=== PATIENT | female | born 1955 | race Caucasian/White ===

== ENCOUNTER 2019-08-12 11:29 | Inpatient (IN) | payer MEDICARE, OTHER ==
[2019-08-04 15:36] LABS: BASOPHILS % (AUTO) 0.6 % (0-1); EOSINOPHILS # (AUTO) 0.3 X10'3 (0-0.9); EOSINOPHILS % (AUTO) 3.1 % (0-6); LYMPHOCYTES # (AUTO) 2.5 X10'3 (1.1-4.8); MEAN CORPUSCULAR HEMOGLOBIN 32.9 PG (27.0-31.0); MEAN CORPUSCULAR HGB CONC 35.6 g/dL (33.0-36.5); MEAN CORPUSCULAR VOLUME 92.5 FL (78-98); MEAN PLATELET VOLUME 7.3 FL (7.4-10.4); MONOCYTES # (AUTO) 0.7 X10'3 (0-0.9); MONOCYTES % (AUTO) 7.8 % (2-12); NEUTROPHILS % (AUTO) 59.5 % (42-75); PRE OP HEMOGLOBIN 12.5 g/dL (12.0-16.0); PRE OP PLATELET COUNT 352 X10'3 (140-440); RED BLOOD COUNT 3.79 X10'6 (4.20-5.60); RED CELL DISTRIBUTION WIDTH 12.5 % (11.5-14.5)
[2019-08-04 15:44] LABS: PRE OP PROTIME 10.2 SECONDS (9.0-12.0)
[2019-08-04 15:48] LABS: ALBUMIN/GLOBULIN RATIO 1.3 (1.1-1.5); ALKALINE PHOSPHATASE 68 IU/L (46-116); BLOOD UREA NITROGEN 10 MG/DL (7-18); BUN/CREATININE RATIO 11.2 (6.6-38.0); CALCIUM 8.9 MG/DL (8.5-10.1); CHLORIDE 95 MMOL/L (99-107); CREATININE 0.89 MG/DL (0.40-0.90); PRE OP ALT 23 U/L (30-65); PRE OP ANION GAP 7 (8-16); PRE OP AST 19 U/L (10-37); PRE OP BILIRUB, TOTAL 0.3 MG/DL (0.0-1.0); PRE OP GLUCOSE 104 MG/DL (70-104); PRE OP POTASSIUM 3.9 MMOL/L (3.4-5.1); PRE OP SODIUM 132 MMOL/L (135-145); TOTAL CARBON DIOXIDE 29.7 MMOL/L (24-32); TOTAL PROTEIN 7.1 G/DL (6.4-8.2); eGFR 64 ML/MIN
[2019-08-12] VITALS (17 sets, daily range): BP systolic 80–119; BP diastolic 43–76
[~2019-08-12] VITALS: Ht 165.1 cm; Wt 96.2 kg
[~2019-08-12 11:29] MED LIST: Cefazolin 2GM/100ML NS IVPB 100 ML IV ONE; DOCUMENT DATE & TIME OF BETA-BLOCKER PO ONE; FLUO-100 PO; GABA-532 PO; HYDR25TA4 PO; PROM25TA14 PO; PROP20TA6 PO; RIZA10TA28 PO; TIZA4TAB5 PO; famotidine 20mg tablet PO ONE; vancomycin inj 1,500 MG in normal saline 300ml IV soln IV ONE
[2019-08-12] MEDS: ringers solution, lacted 1,000 ML IV SCH ×2 (11:59→12:01)
[2019-08-12] MEDS ORDERED: ceFAZolin 1000mg inj ONE ×2 (12:36→12:46)
[2019-08-12] MEDS ORDERED: LIDOcaine 1% (10mg/ml) 2ml vial ONE (13:00)
[2019-08-12] MEDS ORDERED: BUPIVAcaine/dex-water/PF 7.5 mg/ml 2ml ampul ONE (13:00)
[2019-08-12] MEDS ORDERED: propofol 10mg/ml 20ml vial IV ONE (13:00)
[2019-08-12] MEDS ORDERED: tetracaine 1% (10mg/ml) pres. free inj. ONE (13:05)
[2019-08-12] MEDS ORDERED: morphine /PF 1mg/ml 10ml inj. ONE (13:20)
[2019-08-12] MEDS ORDERED: fentaNYL/PF 50MCG/1 ML 2ML syringe ONE (13:20)
[2019-08-12] MEDS ORDERED: MIDAZolam 1mg/ml 10ml vial ONE (13:20)
[2019-08-12] MEDS ORDERED: TRANEXAMIC ACID 1 GM IN NACL,ISO-OS 100 ML IV ONE (13:40)
[2019-08-12] MEDS ORDERED: diphenhydrAMINE 50 mg/ml inj ONE (13:52)
[2019-08-12] MEDS ORDERED: ringers solution, lacted 1,000 ML IV SCH (14:12)
[2019-08-12] MEDS ORDERED: phenylephrine 10mg/ml inj. ONE (14:13)
[2019-08-12] MEDS ORDERED: morphine 4 MG/ML inj SYRINge IV PRN ×2 (14:15)
[2019-08-12] MEDS ORDERED: hydrALAZINE 20mg/ml inj. IV PRN (14:15)
[2019-08-12] MEDS ORDERED: fentaNYL/PF 50MCG/1 ML 2ML syringe IV PRN ×2 (14:15)
[2019-08-12] MEDS ORDERED: ondansetron/PF 4mg/2ml inj IV PRN ×3 (14:15→16:20)
[2019-08-12] MEDS ORDERED: diphenhydrAMINE 50 mg/ml inj IV PRN (14:15)
[2019-08-12] MEDS ORDERED: labetalol 20mg/4ml (5mg/ml) syringe IV PRN (14:15)
[2019-08-12] MEDS ORDERED: ROPIVAcaine 0.5% (5mg/ml) 30ml vial ONE (14:44)
[2019-08-12] MEDS ORDERED: dexamethasone sod phosphate 4mg/ml inj. ONE (14:44)
[2019-08-12] MEDS ORDERED: proMETHazine 25mg tablet PO PRN (16:15)
[2019-08-12] MEDS ORDERED: HYDROcodone/acetaminophen 10/325mg tab PO PRN (16:20)
[2019-08-12] MEDS ORDERED: diphenhydrAMINE 25mg capsule PO PRN (16:20)
[2019-08-12] MEDS ORDERED: magnesium hydroxide 30ml (MOM) UD suspension PO PRN (16:20)
[2019-08-12] MEDS ORDERED: SUMAtriptan 25 MG tablet PO PRN (16:20)
[2019-08-12] MEDS ORDERED: bisacodyl 10mg suppository rectal RC PRN (16:20)
[2019-08-12] MEDS ORDERED: acetaminophen 325mg tablet PO PRN (16:20)
[2019-08-12] MEDS ORDERED: HYDROmorphone 1 mg/ml syringe IV PRN (16:20)
--- NOTE | 2019-08-12 16:26 | NUR ---
Received from OR via ORTHO BED WITH [facility] , accompanied by Anesthesiologist ANGELIKA and report given by Anesthesiolgist. PATIENT SENSATION LEVEL AT L1 CURRENTLY FROM SPINAL ANESTHESIA. PATIENT WITH 18G PIV IN RIGHT UE RUNNING LR AT 100. DENIES PAIN. BOLDEN CATHETER PRESENT WITH CLEAR YELLOW URINE PRESENT. RIGHT KNEE WRAP, COLD PACK, MARBELLA ALL IN PLACE AND DRESSING IS CDI. Addendum: 08/12/19 at 1652 by Iggy Corrales RN, RN Amended: Links added.
[2019-08-12] MEDS: ROPIVAcaine 0.2%/PF PUMP/bolus 550 ML INTERSCALE SCH (16:58)
--- NOTE | 2019-08-12 17:14 | NUR ---
Patient in room PAS IN 901. I have received report from Tia BUCIO and had the opportunity to ask questions and assume patient care.
[2019-08-12] MEDS ORDERED: aspirin 325mg tablet PO SCH (17:30)
--- NOTE | 2019-08-12 17:36 | NUR ---
ALL CRITERIA FOR TRANSFER TO THE FLOOR HAS BEEN ACHIEVED. VSS. BED LOW, CALL LIGHT AND VS. SET IN PLACE. RN PRESENT TO ACCEPT CARE. PATIENT RESTING COMFORTABLY IN BED. BELONGINGS SENT WITH PATIENT. DRESSINGS CDI. BP WNL, DRESSING CDI. BOLDEN STILL WITH CLEAR YELLOW URINE PRESENT. FORTUNATO IRBY PRESENT TO ACCEPT CARE Addendum: 08/12/19 at 1758 by Iggy Corrales RN, RN Amended: Links added.
--- NOTE | 2019-08-12 17:50 | NUR ---
on the floor. started post op vitals. Problems reprioritized. Patient report given, questions answered & plan of care reviewed with Pierre BUCIO.
--- NOTE | 2019-08-12 19:00 | NUR ---
Patient in room ORTHO 4014. I have received report from Redd BUCIO and had the opportunity to ask questions and assume patient care.
[2019-08-12] MEDS ORDERED: tranexamic acid inj. 1,000 MG in normal saline 100ml IV soln 100 ML IV ONE (19:30)
[2019-08-12] MEDS ORDERED: vancomycin/NS 1 GM ADD-VANTAGE 250 ML IV SCH (20:00)
[2019-08-12] MEDS: diphenhydrAMINE 25mg capsule PO PRN (20:39)
[2019-08-12] MEDS: ROPIVAcaine 0.2% (10 MG/5 ML) BOLUS INJECTION INTERSCALE PRN (21:29)
[2019-08-12] MEDS: potassium Cl 20mEq in NS 1,000 ML IV SCH (21:35)
[2019-08-12] MEDS: ketorolac tromethamine 15mg/ml inj. IV SCH (21:37)
[2019-08-12] MEDS: sennosides 8.6mg tablet PO SCH (21:39)
[2019-08-12] MEDS: gabapentin 300mg capsule PO SCH (21:40)
[2019-08-13] VITALS (11 sets, daily range): BP systolic 64–115; BP diastolic 21–76
--- NOTE | 2019-08-13 01:30 | NUR ---
Pt sbp was 75, with a map of 51, Pt is asymptomatic. 250ml Fluid bolus was given, pt responded to 95/ 45 blood pressure with a map of 63.
[2019-08-13] MEDS: ceFAZolin 1GM/D5W- ADD-VANTAGE 50 ML IV SCH ×2 (03:25→08:42)
[2019-08-13] MEDS: ketorolac tromethamine 15mg/ml inj. IV SCH ×3 (03:27→13:46)
--- NOTE | 2019-08-13 06:20 | NUR ---
Patient in room ORTHO 4014. I have received report from TJ BUCIO and had the opportunity to ask questions and assume patient care.
[2019-08-13] MEDS: potassium Cl 20mEq in NS 1,000 ML IV SCH ×2 (06:54→12:12)
[2019-08-13 06:57] LABS: BASOPHILS % (AUTO) 0.2 % (0-1); EOSINOPHILS % (AUTO) 0.6 % (0-6); HEMATOCRIT 23.4 % (35.0-45.0); HEMOGLOBIN 8.4 g/dl (12.0-16.0); LYMPHOCYTES # (AUTO) 1.3 X10'3 (1.1-4.8); MEAN CORPUSCULAR VOLUME 92.5 FL (78-98); MONOCYTES # (AUTO) 0.8 X10'3 (0-0.9); MONOCYTES % (AUTO) 11.7 % (2-12); NEUTROPHILS # (AUTO) 4.6 X10'3 (1.8-7.7); NEUTROPHILS % (AUTO) 68.5 % (42-75); PLATELET COUNT 249 X10'3 (140-440); RED BLOOD COUNT 2.53 X10'6 (4.20-5.60); RED CELL DISTRIBUTION WIDTH 12.5 % (11.5-14.5); WHITE BLOOD COUNT 6.8 X10'3 (4.5-11.0)
[2019-08-13 07:03] LABS: ALANINE AMINOTRANSFERASE 29 U/L (12-78); ALBUMIN 3.1 G/DL (3.4-5.0); ALBUMIN/GLOBULIN RATIO 1.3 (1.1-1.5); ALKALINE PHOSPHATASE 45 IU/L (46-116); ANION GAP 10 (8-16); ASPARTATE AMINO TRANSFERASE 26 U/L (10-37); BILIRUBIN,TOTAL 0.3 MG/DL (0.1-1.0); BLOOD UREA NITROGEN 11 MG/DL (7-18); BUN/CREATININE RATIO 11.5 (6.6-38.0); CALCIUM 8.3 MG/DL (8.5-10.1); CHLORIDE 97 MMOL/L (99-107); CREATININE 0.96 MG/DL (0.40-0.90); GLUCOSE 123 MG/DL (70-104); POTASSIUM 3.4 MMOL/L (3.5-5.1); SODIUM 131 MMOL/L (135-145); TOTAL CARBON DIOXIDE 24.5 MMOL/L (24-32); TOTAL PROTEIN 5.5 G/DL (6.4-8.2); eGFR 58 ML/MIN
[2019-08-13 07:19] LABS: MEAN CORPUSCULAR HEMOGLOBIN 32.9 PG (27.0-31.0); MEAN CORPUSCULAR HGB CONC 35.1 g/dL (33.0-36.5)
[2019-08-13] MEDS: aspirin 81mg tablet.DR PO SCH ×2 (08:14→17:39)
[2019-08-13] MEDS: FLUoxetine 20mg capsule PO SCH (08:15)
[2019-08-13] MEDS: HYDROchlorothiazide 25mg tablet PO SCH (08:15)
[2019-08-13] MEDS: gabapentin 300mg capsule PO SCH ×2 (08:15→20:07)
[2019-08-13] MEDS: propranolol 10mg tablet PO SCH (08:15)
--- NOTE | 2019-08-13 13:48 | NUR ---
Joint Replacement Consult: Pt admit s/p R TKA PO 75-100% avg meals meeting healing needs post-op. No BM yet post-op receiving senna. Also on hydrochlorothiazide w/ K replacement running. No nutrition concerns at this time. Will continue to monitor. Addendum: 08/13/19 at [address] Amended: Links added.
[2019-08-13] MEDS: ROPIVAcaine 0.2%/PF PUMP/bolus 550 ML INTERSCALE SCH (17:24)
--- NOTE | 2019-08-13 17:30 | NUR ---
PATIENT GAVE HERSELF A BOLUS FROM THE ON-Q.
--- NOTE | 2019-08-13 17:52 | NUR ---
Student documentation: I have reviewed and agree with all interventions, assessments performed and documented by KALPESH FRIED. Student Medication Administration: For this medication-pass time frame, all medication were reviewed, dispensed, administered and documented per hospital policy by KALPESH FRIED.
--- NOTE | 2019-08-13 18:05 | NUR ---
Problems reprioritized. Patient report given, questions answered & plan of care reviewed with NOEL BUCIO.
--- NOTE | 2019-08-13 18:27 | NUR ---
Patient in room ORTHO 4014. I have received report from Tarah BUCIO and had the opportunity to ask questions and assume patient care.
[2019-08-13] MEDS: diphenhydrAMINE 25mg capsule PO PRN (20:07)
[2019-08-13] MEDS: sennosides 8.6mg tablet PO SCH (20:07)
[2019-08-13] MEDS ORDERED: normal saline 250ml IV soln 250 ML IV ONE ×2 (22:26→23:15)
--- NOTE | 2019-08-13 22:26 | NUR ---
Low BP at 2200 vitals. 250ml bolus given. Asymptomatic. BP retaken and still low. Called MD's answering service. Awaiting phone call from accreditation coordinator .
--- NOTE | 2019-08-13 22:58 | NUR ---
Called sap business intelligence consultant service again. BP still low.
--- NOTE | 2019-08-13 23:15 | NUR ---
Still no call from answering service. Patient placed in Trendelenburg. Second 250ml bolus given. Addendum: 08/14/19 at 0545 by Lupe Davey RN Never received call from acetone button paster MD. Patient's BP stabilized after boluses.
[2019-08-14] VITALS (15 sets, daily range): BP systolic 91–143; BP diastolic 42–70
[2019-08-14] MEDS: potassium Cl 20mEq in NS 1,000 ML IV SCH ×2 (00:24→13:29)
[2019-08-14 05:21] LABS: BASOPHILS % (AUTO) 0.3 % (0-1); EOSINOPHILS # (AUTO) 0.1 X10'3 (0-0.9); EOSINOPHILS % (AUTO) 1.9 % (0-6); HEMOGLOBIN 7.1 g/dl (12.0-16.0); LYMPHOCYTES # (AUTO) 1.2 X10'3 (1.1-4.8); LYMPHOCYTES % (AUTO) 21.4 % (21-51); MEAN CORPUSCULAR HEMOGLOBIN 33.6 PG (27.0-31.0); MEAN CORPUSCULAR HGB CONC 35.8 g/dL (33.0-36.5); MEAN CORPUSCULAR VOLUME 93.8 FL (78-98); MEAN PLATELET VOLUME 6.7 FL (7.4-10.4); MONOCYTES # (AUTO) 0.8 X10'3 (0-0.9); MONOCYTES % (AUTO) 14.4 % (2-12); NEUTROPHILS # (AUTO) 3.5 X10'3 (1.8-7.7); PLATELET COUNT 164 X10'3 (140-440); RED BLOOD COUNT 2.11 X10'6 (4.20-5.60); RED CELL DISTRIBUTION WIDTH 12.7 % (11.5-14.5); WHITE BLOOD COUNT 5.6 X10'3 (4.5-11.0)
[2019-08-14 05:26] LABS: HEMATOCRIT 19.8 % (35.0-45.0)
[2019-08-14 05:34] LABS: ALANINE AMINOTRANSFERASE 16 U/L (12-78); ALBUMIN 2.7 G/DL (3.4-5.0); ALBUMIN/GLOBULIN RATIO 1.1 (1.1-1.5); ALKALINE PHOSPHATASE 42 IU/L (46-116); ANION GAP 6 (8-16); ASPARTATE AMINO TRANSFERASE 17 U/L (10-37); BILIRUBIN,TOTAL 0.4 MG/DL (0.1-1.0); BLOOD UREA NITROGEN 13 MG/DL (7-18); BUN/CREATININE RATIO 14.6 (6.6-38.0); CHLORIDE 99 MMOL/L (99-107); CREATININE 0.89 MG/DL (0.40-0.90); GLUCOSE 113 MG/DL (70-104); POTASSIUM 3.7 MMOL/L (3.5-5.1); SODIUM 129 MMOL/L (135-145); TOTAL CARBON DIOXIDE 24.1 MMOL/L (24-32); TOTAL PROTEIN 5.2 G/DL (6.4-8.2); eGFR 64 ML/MIN
--- NOTE | 2019-08-14 05:36 | NUR ---
Critical Hematocrit 19.8. Called answering service with results. Awaiting call or contact centre manager MD to call.
--- NOTE | 2019-08-14 05:57 | NUR ---
Called answering service again. Awaiting call.
--- NOTE | 2019-08-14 06:37 | NUR ---
Patient in room ORTHO 4014. I have received report from Lupe BUCIO and had the opportunity to ask questions and assume patient care.
--- NOTE | 2019-08-14 06:40 | NUR ---
Problems reprioritized. Patient report given, questions answered & plan of care reviewed with Redd BUCIO.
[2019-08-14] MEDS: aspirin 81mg tablet.DR PO SCH ×2 (08:45→17:55)
[2019-08-14] MEDS: FLUoxetine 20mg capsule PO SCH (08:45)
[2019-08-14] MEDS: gabapentin 300mg capsule PO SCH ×2 (08:45→20:03)
[2019-08-14] MEDS: HYDROcodone/acetaminophen 10/325mg tab PO PRN ×3 (11:37→21:01)
[2019-08-14 14:52] LABS: MEAN CORPUSCULAR HEMOGLOBIN 32.4 PG (27.0-31.0); MEAN CORPUSCULAR HGB CONC 35.7 g/dL (33.0-36.5); MEAN CORPUSCULAR VOLUME 90.8 FL (78-98); MEAN PLATELET VOLUME 7.1 FL (7.4-10.4); PLATELET COUNT 197 X10'3 (140-440); RED BLOOD COUNT 3.08 X10'6 (4.20-5.60); RED CELL DISTRIBUTION WIDTH 14.1 % (11.5-14.5); WHITE BLOOD COUNT 8.7 X10'3 (4.5-11.0)
--- NOTE | 2019-08-14 16:10 | NUR ---
Called Dr. Frye office and left a message with braid cutter that patient will be staying another night to monitor BP and work with physical therapy in the morning.
--- NOTE | 2019-08-14 18:24 | NUR ---
Problems reprioritized. Patient report given, questions answered & plan of care reviewed with Junior BUCIO.
--- NOTE | 2019-08-14 18:45 | NUR ---
Problems reprioritized. Patient report given, questions answered & plan of care reviewed with FORTUNATO Rainey.
[2019-08-14] MEDS: sennosides 8.6mg tablet PO SCH (20:03)
[2019-08-15] MEDS: ROPIVAcaine 0.2%/PF PUMP/bolus 550 ML INTERSCALE SCH (03:21)
[2019-08-15] MEDS: ROPIVAcaine 0.2% (10 MG/5 ML) BOLUS INJECTION INTERSCALE PRN (03:27)
[2019-08-15 06:00] VITALS: BP 82/50
--- NOTE | 2019-08-15 06:20 | NUR ---
received report from stevan hamilton
--- NOTE | 2019-08-15 06:26 | NUR ---
Problems reprioritized. Patient report given, questions answered & plan of care reviewed with FORTUNATO Plaza.
[2019-08-15] MEDS: HYDROcodone/acetaminophen 10/325mg tab PO PRN (06:52)
[2019-08-15] MEDS: aspirin 81mg tablet.DR PO SCH (07:25)
[2019-08-15] MEDS: gabapentin 300mg capsule PO SCH (07:25)
[2019-08-15] MEDS: FLUoxetine 20mg capsule PO SCH (07:27)
[2019-08-15 07:34] LABS: BASOPHILS % (AUTO) 0.3 % (0-1); EOSINOPHILS # (AUTO) 0.3 X10'3 (0-0.9); EOSINOPHILS % (AUTO) 3.6 % (0-6); HEMATOCRIT 26.2 % (35.0-45.0); HEMOGLOBIN 9.3 g/dl (12.0-16.0); LYMPHOCYTES # (AUTO) 1.7 X10'3 (1.1-4.8); LYMPHOCYTES % (AUTO) 24.1 % (21-51); MEAN CORPUSCULAR HEMOGLOBIN 32.6 PG (27.0-31.0); MEAN CORPUSCULAR HGB CONC 35.6 g/dL (33.0-36.5); MEAN CORPUSCULAR VOLUME 91.7 FL (78-98); MEAN PLATELET VOLUME 7.2 FL (7.4-10.4); MONOCYTES % (AUTO) 14.5 % (2-12); NEUTROPHILS % (AUTO) 57.5 % (42-75); PLATELET COUNT 183 X10'3 (140-440); RED BLOOD COUNT 2.86 X10'6 (4.20-5.60); RED CELL DISTRIBUTION WIDTH 14.2 % (11.5-14.5)
[2019-08-15 07:52] LABS: ALANINE AMINOTRANSFERASE 17 U/L (12-78); ALBUMIN 2.5 G/DL (3.4-5.0); ALBUMIN/GLOBULIN RATIO 0.8 (1.1-1.5); ALKALINE PHOSPHATASE 53 IU/L (46-116); ANION GAP 9 (8-16); ASPARTATE AMINO TRANSFERASE 13 U/L (10-37); BILIRUBIN,TOTAL 0.4 MG/DL (0.1-1.0); BLOOD UREA NITROGEN 11 MG/DL (7-18); BUN/CREATININE RATIO 15.3 (6.6-38.0); CALCIUM 8.7 MG/DL (8.5-10.1); CHLORIDE 101 MMOL/L (99-107); CREATININE 0.72 MG/DL (0.40-0.90); GLUCOSE 116 MG/DL (70-104); POTASSIUM 3.7 MMOL/L (3.5-5.1); SODIUM 134 MMOL/L (135-145); TOTAL CARBON DIOXIDE 24.5 MMOL/L (24-32); TOTAL PROTEIN 5.6 G/DL (6.4-8.2); eGFR 81 ML/MIN
[2019-08-15] MEDS: HYDROchlorothiazide 25mg tablet PO SCH (08:00)
[2019-08-15] MEDS: propranolol 10mg tablet PO SCH (09:35)
[2019-08-15 09:36] VITALS: BP 104/55
--- NOTE | 2019-08-15 10:19 | NUR ---
PT D/C WITH INSTRUCTIONS, UNDERSTANDING OF INSTRUCTIONS, AND W/ALL BELONGINGS IN WHEELCHAIR TO PRIVATE VEHICLE ACCOMPANIED BY TO GO HOME AND F/U W/SURGEON
== END 2019-08-15 10:15 | disposition home or self-care (01) | DRG 470 ==
LOC: PAS IN 11:29 → EDSTATUS 13:30 → ORTHO 4S 17:45
PROVIDERS: ADMIT Orthopaedic Surgery; ATTEND Orthopaedic Surgery
PROC: 3E0T3BZ Introduction of Anesthetic Agent into Peripheral Nerves and Plexi, Percutaneous Approach (ICD-10-PCS; 2019-08-12)
PROC: 0SRC069 Replacement of Right Knee Joint with Oxidized Zirconium on Polyethylene Synthetic Substitute, Cemented, Open Approach (ICD-10-PCS; principal; 2019-08-12 13:07)
PROC: 30233N1 Transfusion of Nonautologous Red Blood Cells into Peripheral Vein, Percutaneous Approach (ICD-10-PCS; 2019-08-14)
DX: M17.11 Unilateral primary osteoarthritis, right knee (principal); D62 Acute posthemorrhagic anemia; I10 Essential (primary) hypertension; G89.29 Other chronic pain; F32.9 Major depressive disorder, single episode, unspecified; G43.909 Migraine, unspecified, not intractable, without status migrainosus; Z85.820 Personal history of malignant melanoma of skin; Z98.84 Bariatric surgery status; Z79.899 Other long term (current) drug therapy
CPT/HCPCS: 36415; 80053; 82948; 85025; 85027; 85610; 85730; 86885; 86900; 86901; 86920; 87081; 97110; 97116; 97162; 97530; A4215; A6455; A7000; C1713; C1758; C1776; G0378; J0690; J1100; J1200; J1885; J2001; J2250; J2270; J2370; J2704; J2795; J3010; J3370; J3480; J3490; J7050; J7120; P9016; Q0163; Q0169

== ENCOUNTER 2020-07-18 05:54 | Day surgery (SDC) | payer MEDICARE ==
[2020-07-13 11:58] LABS: BASOPHILS % (AUTO) 0.5 % (0-1); EOSINOPHILS # (AUTO) 0.3 X10'3 (0-0.9); EOSINOPHILS % (AUTO) 4.3 % (0-6); LYMPHOCYTES # (AUTO) 1.6 X10'3 (1.1-4.8); LYMPHOCYTES % (AUTO) 26.9 % (21-51); MEAN CORPUSCULAR HEMOGLOBIN 32.6 PG (27.0-31.0); MEAN CORPUSCULAR HGB CONC 34.5 g/dL (33.0-36.5); MEAN CORPUSCULAR VOLUME 94.4 FL (78-98); MEAN PLATELET VOLUME 6.8 FL (7.4-10.4); MONOCYTES # (AUTO) 0.6 X10'3 (0-0.9); MONOCYTES % (AUTO) 10.8 % (2-12); NEUTROPHILS # (AUTO) 3.4 X10'3 (1.8-7.7); NEUTROPHILS % (AUTO) 57.5 % (42-75); PRE OP HEMOGLOBIN 13.1 g/dL (12.0-16.0); PRE OP PLATELET COUNT 324 X10'3 (140-440); RED BLOOD COUNT 4.02 X10'6 (4.20-5.60); RED CELL DISTRIBUTION WIDTH 12.5 % (11.5-14.5)
[2020-07-13 12:06] LABS: PRE OP PROTIME 10.6 SECONDS (9.0-12.0)
[2020-07-13 12:07] LABS: ALBUMIN 4.1 G/DL (3.4-5.0); ALBUMIN/GLOBULIN RATIO 1.2 (1.1-1.5); ALKALINE PHOSPHATASE 76 IU/L (46-116); BLOOD UREA NITROGEN 18 MG/DL (7-18); BUN/CREATININE RATIO 21.2 (6.6-38.0); CALCIUM 9.2 MG/DL (8.5-10.1); CHLORIDE 101 MMOL/L (99-107); CREATININE 0.85 MG/DL (0.40-0.90); PRE OP ALT 34 U/L (30-65); PRE OP ANION GAP 8 (8-16); PRE OP AST 23 U/L (10-37); PRE OP BILIRUB, TOTAL 0.4 MG/DL (0.0-1.0); PRE OP GLUCOSE 104 MG/DL (70-104); PRE OP SODIUM 137 MMOL/L (135-145); TOTAL CARBON DIOXIDE 28.3 MMOL/L (24-32); TOTAL PROTEIN 7.4 G/DL (6.4-8.2); eGFR 67 ML/MIN
[2020-07-13 12:10] LABS: PRE OP POTASSIUM 3.3 MMOL/L (3.4-5.1)
[~2020-07-18] VITALS: Ht 165.1 cm; Wt 102.1 kg
[2020-07-18] VITALS (8 sets, daily range): BP systolic 100–121; BP diastolic 54–68
[~2020-07-18 05:54] MED LIST changes: +ASCO500C17 PO; -Cefazolin 2GM/100ML NS IVPB 100 ML IV ONE; +FERR-121 PO; +MULT-1085 PO; +TIZA4TAB11 PO; -TIZA4TAB5 PO; +ringers solution, lacted 1,000 ML IV SCH; -vancomycin inj 1,500 MG in normal saline 300ml IV soln IV ONE
[2020-07-18] MEDS ORDERED: oxymetazoline 15 ML nasal spray NS ONE ×2 (06:00→06:55)
[2020-07-18] MEDS ORDERED: cocaine 4% topical solution 4ml bottle ONE (06:53)
[2020-07-18] MEDS ORDERED: methylPREDNISolone acetate 80mg/ml inj**IM only ONE (06:54)
[2020-07-18] MEDS ORDERED: cefTAZidime 1gm inj ONE (06:54)
[2020-07-18] MEDS ORDERED: LIDOcaine 1% W/epiNEPHrine 1:100,000 20ml vial ONE (06:54)
[2020-07-18] MEDS ORDERED: mupirocin 2% ointment 22GM ONE (06:54)
[2020-07-18] MEDS ORDERED: labetalol 20mg/4ml (5mg/ml) syringe IV PRN (07:55)
[2020-07-18] MEDS ORDERED: ringers solution, lacted 1,000 ML IV SCH (07:55)
[2020-07-18] MEDS ORDERED: ondansetron/PF 4mg/2ml inj IV PRN (07:55)
[2020-07-18] MEDS ORDERED: hydrALAZINE 20mg/ml inj. IV PRN (07:55)
[2020-07-18] MEDS ORDERED: morphine 2 MG/ML inj. syringe IV PRN (07:55)
[2020-07-18] MEDS ORDERED: fentaNYL/PF 50MCG/1 ML 2ML syringe IV PRN ×2 (07:55)
[2020-07-18] MEDS ORDERED: morphine 4 MG/ML inj SYRINge IV PRN (07:55)
[2020-07-18] MEDS ORDERED: midazolam 2 mg/2 ml injection ONE (08:01)
[2020-07-18] MEDS ORDERED: fentaNYL/PF 50MCG/1 ML 2ML syringe ONE (08:01)
[2020-07-18] MEDS ORDERED: propofol inj 20 ML IV ONE (08:02)
[2020-07-18] MEDS ORDERED: LIDOcaine 2% (20mg/ml) 5ml vial ONE (08:02)
[2020-07-18] MEDS ORDERED: dexamethasone sod phosphate 4mg/ml inj. ONE (08:02)
[2020-07-18] MEDS ORDERED: ondansetron/PF 4mg/2ml inj ONE (08:02)
[2020-07-18] MEDS ORDERED: sevoflurane 250ml liquid IH ONE (08:05)
[2020-07-18] MEDS ORDERED: rocuronium 10mg/ml inj IV ONE ×2 (08:19→09:04)
[2020-07-18] MEDS ORDERED: LIDOcaine 1% 30ml preserv. free vial ONE (08:24)
[2020-07-18] MEDS ORDERED: BUPIVAcaine 0.5% inj/PF 30 ML ONE (08:25)
[2020-07-18] MEDS ORDERED: BUPIVAcaine 0.5% W/EPI /PF 30ml vial ONE (08:26)
[2020-07-18] MEDS ORDERED: ePHEDrine 50MG/ML INJ. ONE (08:31)
[2020-07-18] MEDS ORDERED: glycopyrrolate 0.2mg/ml inj ONE (09:32)
[2020-07-18] MEDS ORDERED: neostigmine methylsulfate 1 MG/ML 10ml vial ONE (09:32)
--- NOTE | 2020-07-18 10:07 | NUR ---
Received from OR via , accompanied by Anesthesiologist DR MOCK and report given by Anesthesiolgist.AWAKENS TO VOICE. VITALS STABLE. NOLVIA PAIN. NO BLEEDING NOTED.
[2020-07-18] MEDS ORDERED: oxymetazoline 15 ML nasal spray NS SCH (10:32)
[2020-07-18] MEDS ORDERED: salt irrigation nasal spray 45 ML SPRAY NS PRN (10:35)
[2020-07-18] MEDS ORDERED: mupirocin 2% ointment 22GM TP SCH (10:35)
--- NOTE | 2020-07-18 11:17 | NUR ---
AWAKE AND ORIENTED. VITALS STABLE. NASAL DRESSING APPLIED. NOLVIA PAIN. HOME WITH HER SPOUSE AT THIS TIME.
== END 2020-07-18 11:17 | disposition home or self-care (01) ==
LOC: PAS 05:54
PROVIDERS: ATTEND Otolaryngology
DX: J34.2 Deviated nasal septum (principal); J34.3 Hypertrophy of nasal turbinates; J32.8 Other chronic sinusitis; J34.89 Other specified disorders of nose and nasal sinuses; K13.79 Other lesions of oral mucosa; G43.909 Migraine, unspecified, not intractable, without status migrainosus; M19.90 Unspecified osteoarthritis, unspecified site; F32.9 Major depressive disorder, single episode, unspecified; I10 Essential (primary) hypertension; G89.29 Other chronic pain; E66.9 Obesity, unspecified; Z68.37 Body mass index [BMI] 37.0-37.9, adult; Z79.899 Other long term (current) drug therapy; Z79.01 Long term (current) use of anticoagulants; Z20.828 Contact with and (suspected) exposure to other viral communicable diseases; Z96.651 Presence of right artificial knee joint; Z98.84 Bariatric surgery status; Z98.890 Other specified postprocedural states; Z87.891 Personal history of nicotine dependence
CPT/HCPCS: 30140; 30520; 31240; 31254; 31267; 36415; 42106; 61782; 80053; 82948; 85025; 85576; 85610; 85730; 87635; 93005; A6402; C9250; C9803; J0713; J1040; J1100; J2001; J2250; J2405; J2704; J2710; J3010; J7040; J7120; A4618; A6258; A7000; J3490

== ENCOUNTER 2021-07-23 08:58 | Day surgery (SDC) | payer MEDICARE ==
[2021-07-18 15:21] LABS: BASOPHILS % (AUTO) 0.8 % (0-1); EOSINOPHILS # (AUTO) 0.2 X10'3 (0-0.9); EOSINOPHILS % (AUTO) 3.9 % (0-6); LYMPHOCYTES # (AUTO) 2.2 X10'3 (1.1-4.8); LYMPHOCYTES % (AUTO) 39.4 % (21-51); MEAN CORPUSCULAR HEMOGLOBIN 32.5 PG (27.0-31.0); MEAN CORPUSCULAR HGB CONC 34.7 g/dL (33.0-36.5); MEAN CORPUSCULAR VOLUME 93.6 FL (78-98); MEAN PLATELET VOLUME 7.2 FL (7.4-10.4); MONOCYTES # (AUTO) 0.5 X10'3 (0-0.9); MONOCYTES % (AUTO) 8.2 % (2-12); NEUTROPHILS # (AUTO) 2.6 X10'3 (1.8-7.7); NEUTROPHILS % (AUTO) 47.7 % (42-75); PRE OP HEMATOCRIT 36.1 % (35.0-45.0); PRE OP HEMOGLOBIN 12.5 g/dL (12.0-16.0); PRE OP PLATELET COUNT 342 X10'3 (140-440); RED BLOOD COUNT 3.86 X10'6 (4.20-5.60); RED CELL DISTRIBUTION WIDTH 12.8 % (11.5-14.5)
[2021-07-18 15:32] LABS: PRE OP PROTIME 10.4 SECONDS (9.0-12.0)
[2021-07-18 15:37] LABS: ALBUMIN 3.9 G/DL (3.4-5.0); ALBUMIN/GLOBULIN RATIO 1.2 (1.1-1.5); ALKALINE PHOSPHATASE 77 IU/L (46-116); BLOOD UREA NITROGEN 13 MG/DL (7-18); BUN/CREATININE RATIO 16.5 (6.6-38.0); CALCIUM 8.4 MG/DL (8.5-10.1); CHLORIDE 103 MMOL/L (99-107); CREATININE 0.79 MG/DL (0.40-0.90); PRE OP ALT 33 U/L (30-65); PRE OP ANION GAP 10 (8-16); PRE OP AST 22 U/L (10-37); PRE OP BILIRUB, TOTAL 0.3 MG/DL (0.0-1.0); PRE OP POTASSIUM 3.6 MMOL/L (3.4-5.1); PRE OP SODIUM 140 MMOL/L (135-145); TOTAL CARBON DIOXIDE 26.7 MMOL/L (24-32); TOTAL PROTEIN 7.1 G/DL (6.4-8.2); eGFR 73 ML/MIN
[2021-07-18 15:40] LABS: PRE OP GLUCOSE 112 MG/DL (70-104)
[~2021-07-23] VITALS: Ht 165.1 cm; Wt 88.5 kg
[~2021-07-23 08:58] MED LIST changes: -ASCO500C17 PO; +ESTRADIOL CREAM VG; -FERR-121 PO; -FLUO-100 PO; +HYDR25TA5 PO; -MULT-1085 PO; +VENL75CA61 PO; +cefazolin/dext.iso 2gm/50ml 50 ML IV ONE; +tranexamic acid inj. 1,000 MG in normal saline 100ml IV soln 90 ML IV ONE
[2021-07-23 09:30] VITALS: BP 112/63
--- NOTE | 2021-07-23 09:45 | NUR ---
SURGERY CANCELLED ON PAS PER DR ALEJANDRO R/T HEALING LONG SCRATCH (SCAB) NOTED LEFT LATERAL KNEE APPROX 12", WITH 3 BRUISES PRESENT ON KNEE CAP. NO S/S OF INFECTION NOTED. STATES WALKED INTO A LEARY. CON BUCIOPATIENT CASE MANAGER NURSE TOOK PHOTO OF AREA AND SHOWED DR ALEJANDRO WHO CANCELED SURGERY. PT UNDRESSED AND VS TAKEN, IV NOT YET STARTED, NO MEDS GIVEN. PT DC HOME WITH ALL BELONGINGS WITH HSB PRESENT. INSTRUCTED TO CALL MD OFFICE TO F/U AND RESCHEDULE SURGERY.
== END 2021-07-23 09:45 | disposition home or self-care (01) ==
LOC: PAS 08:58
PROVIDERS: ATTEND Orthopaedic Surgery
DX: M17.12 Unilateral primary osteoarthritis, left knee (principal); Z53.8 Procedure and treatment not carried out for other reasons; R23.4 Changes in skin texture; Z20.822 Contact with and (suspected) exposure to COVID-19; Z79.01 Long term (current) use of anticoagulants; Z79.899 Other long term (current) drug therapy
CPT/HCPCS: 36415; 80053; 85025; 85610; 85730; 86885; 86900; 86901; 86920; 87081; 93005; J3370; U0003; U0005; J7120

== ENCOUNTER 2021-08-13 05:38 | Day surgery (SDC) | payer MEDICARE ==
[2021-08-09 11:27] LABS: BASOPHILS % (AUTO) 0.7 % (0-1); EOSINOPHILS # (AUTO) 0.2 X10'3 (0-0.9); EOSINOPHILS % (AUTO) 3.7 % (0-6); LYMPHOCYTES # (AUTO) 2.5 X10'3 (1.1-4.8); MEAN CORPUSCULAR HEMOGLOBIN 32.8 PG (27.0-31.0); MEAN CORPUSCULAR HGB CONC 35.4 g/dL (33.0-36.5); MEAN CORPUSCULAR VOLUME 92.7 FL (78-98); MEAN PLATELET VOLUME 7.1 FL (7.4-10.4); MONOCYTES # (AUTO) 0.5 X10'3 (0-0.9); MONOCYTES % (AUTO) 8.6 % (2-12); NEUTROPHILS # (AUTO) 2.2 X10'3 (1.8-7.7); PRE OP HEMATOCRIT 35.2 % (35.0-45.0); PRE OP HEMOGLOBIN 12.4 g/dL (12.0-16.0); PRE OP PLATELET COUNT 268 X10'3 (140-440); RED BLOOD COUNT 3.79 X10'6 (4.20-5.60); RED CELL DISTRIBUTION WIDTH 12.7 % (11.5-14.5)
[2021-08-09 11:38] LABS: PRE OP PROTIME 10.4 SECONDS (9.0-12.0)
[2021-08-09 11:59] LABS: ALBUMIN 4.1 G/DL (3.4-5.0); ALBUMIN/GLOBULIN RATIO 1.3 (1.1-1.5); ALKALINE PHOSPHATASE 66 IU/L (46-116); BLOOD UREA NITROGEN 16 MG/DL (7-18); BUN/CREATININE RATIO 18.4 (6.6-38.0); CHLORIDE 98 MMOL/L (99-107); CREATININE 0.87 MG/DL (0.40-0.90); PRE OP ALT 53 U/L (30-65); PRE OP ANION GAP 11 (8-16); PRE OP AST 26 U/L (10-37); PRE OP BILIRUB, TOTAL 0.4 MG/DL (0.0-1.0); PRE OP GLUCOSE 94 MG/DL (70-104); PRE OP POTASSIUM 3.7 MMOL/L (3.4-5.1); PRE OP SODIUM 134 MMOL/L (135-145); TOTAL CARBON DIOXIDE 25.5 MMOL/L (24-32); TOTAL PROTEIN 7.2 G/DL (6.4-8.2); eGFR 65 ML/MIN
[~2021-08-13] VITALS: Ht 165.1 cm; Wt 89.9 kg
[2021-08-13] VITALS (17 sets, daily range): BP systolic 97–144; BP diastolic 58–87
[~2021-08-13 05:38] MED LIST changes: -HYDR25TA5 PO; -cefazolin/dext.iso 2gm/50ml 50 ML IV ONE; +cefazolin/dext.iso 2gm/50ml IV ONE; -ringers solution, lacted 1,000 ML IV SCH; +tranexamic acid inj. 1,000 MG in 0.7% saline 100 ML PMX IV ONE; -tranexamic acid inj. 1,000 MG in normal saline 100ml IV soln 90 ML IV ONE; +vancomycin 1,500 MG in NS 300ml IV soln IV ONE
[2021-08-13] MEDS: ringers solution, lacted 1,000 ML IV SCH ×3 (06:31→11:36)
[2021-08-13] MEDS ORDERED: ROPIVAcaine 0.5% (5mg/ml) 30ml vial ONE ×2 (06:48→08:56)
[2021-08-13] MEDS ORDERED: cloNIDine hcl/PF 100mcg/ml inj ONE (06:48)
[2021-08-13] MEDS ORDERED: ketorolac trometh. 30mg/ml inj. ONE (06:48)
[2021-08-13] MEDS ORDERED: vancomycin 1,000mg inj ONE (06:52)
[2021-08-13] MEDS ORDERED: fentaNYL/PF 50MCG/1 ML 2ML syringe ONE ×2 (07:18→08:46)
[2021-08-13] MEDS ORDERED: tetracaine 1% (10mg/ml) pres. free inj. ONE (07:23)
[2021-08-13] MEDS ORDERED: MIDAZolam 1 MG/ML 5ML VIAL ONE (07:47)
[2021-08-13] MEDS ORDERED: propofol inj 20 ML IV ONE (07:52)
[2021-08-13] MEDS ORDERED: LIDOcaine 1%/PF 5ML 10 MG/ML VIAL ONE (07:52)
[2021-08-13] MEDS ORDERED: ringers solution, lacted 1,000 ML IV SCH (08:20)
[2021-08-13] MEDS ORDERED: morphine 2 MG/ML inj. syringe IV PRN (08:20)
[2021-08-13] MEDS ORDERED: ROPIVAcaine 0.2%/PF PUMP/bolus 545 ML ADDCANAL SCH (08:20)
[2021-08-13] MEDS ORDERED: ROPIVAcaine 0.2% (10 MG/5 ML) BOLUS INJECTION ADDCANAL PRN (08:20)
[2021-08-13] MEDS ORDERED: morphine 4 MG/ML inj SYRINge IV PRN (08:20)
[2021-08-13] MEDS ORDERED: meperidine/PF 25mg/ml syringe IV PRN ×3 (08:20)
[2021-08-13] MEDS ORDERED: ondansetron/PF 4mg/2ml inj IV PRN (08:20)
[2021-08-13] MEDS ORDERED: proCHLORperazine 10 MG/2 ml inj IV PRN (08:20)
[2021-08-13] MEDS ORDERED: phenylephrine 10mg/ml inj. ONE ×2 (08:39)
[2021-08-13] MEDS ORDERED: ePHEDrine 50MG/ML INJ. ONE (08:52)
[2021-08-13] MEDS ORDERED: acetaminophen 1,000mg/100ml IV 100 ML IV ONE (08:52)
[2021-08-13] MEDS ORDERED: diphenhydrAMINE 50 mg/ml inj ONE (08:52)
[2021-08-13] MEDS ORDERED: SUMAtriptan 25 MG tablet PO PRN (10:30)
[2021-08-13] MEDS ORDERED: proMETHazine 25mg tablet PO PRN (10:30)
--- NOTE | 2021-08-13 10:30 | NUR ---
ADMITTED TO PACU FROM OR ACCOMPANIED BY ANESTHESIA. INTIAL PHYSICAL ASSESSMENT DONE AND RECORDED. REPORT RECEIVED FROM ANESTHESIA.
[2021-08-13] MEDS ORDERED: HYDROcodone/acetaminophen 10/325mg tab PO PRN (10:35)
[2021-08-13] MEDS: potassium Cl 20mEq in NS 1,000 ML IV SCH ×2 (10:35→18:38)
[2021-08-13] MEDS ORDERED: diphenhydrAMINE 25mg capsule PO PRN ×2 (10:35)
[2021-08-13] MEDS ORDERED: acetaminophen 325mg tablet PO PRN (10:35)
[2021-08-13] MEDS ORDERED: bisacodyl 10mg suppository rectal RC PRN (10:35)
[2021-08-13] MEDS ORDERED: magnesium hydroxide 30ml (MOM) UD suspension PO PRN (10:35)
--- NOTE | 2021-08-13 11:18 | NUR ---
Patient in room . I have received report from Leighann BUCIO and had the opportunity to ask questions and assume patient care.
--- NOTE | 2021-08-13 11:30 | NUR ---
PACU DISCHARGE CRITERIA MET, REPORT GIVEN TO FLOOR. DENIES PAIN OR DISCOMFORT. PT IS STABLE AND ADEQUATELY RECOVERED FROM ANESTHESIA. PT HAS STABLE AIRWAY PATENCY, RESPIRATORY FUNCTION TO INCLUDE RESPIRATORY RATE AND O2 SAT. HEART RATE, BLOOD PRESSURE STABLE AND HYDRATION ADEQUATE. MENTAL STATUS IS APPROPRIATE. PAIN AND NAUSEA CONTROLLED. REFER TO PACU SPREADSHEET FOR VITAL SIGNS.
--- NOTE | 2021-08-13 12:02 | NUR ---
Patient in room ROLF 356. I have received report from Hiram BUCIO and had the opportunity to ask questions and assume patient care.
[2021-08-13] MEDS: gabapentin 300mg capsule PO SCH ×2 (13:02→20:00)
--- NOTE | 2021-08-13 14:49 | NUR ---
Problems reprioritized. Patient report given, questions answered & plan of care reviewed with Ashley BUCIO.
[2021-08-13] MEDS: HYDROcodone/acetaminophen 10/325mg tab PO PRN ×2 (15:51→22:45)
[2021-08-13] MEDS: ceFAZolin/D5W- 1GM premix 50 ML IV SCH (15:53)
--- NOTE | 2021-08-13 16:08 | NUR ---
as clinical instructor, i reviewed student nurse documentation
--- NOTE | 2021-08-13 18:15 | NUR ---
Problems reprioritized. Patient report given, questions answered & plan of care reviewed with FORTUNATO LAROSE.
[2021-08-13] MEDS: HYDROmorphone 1 mg/ml syringe IV PRN (18:36)
[2021-08-13] MEDS: ondansetron/PF 4mg/2ml inj IV PRN (18:59)
--- NOTE | 2021-08-13 19:56 | NUR ---
Problems reprioritized. Patient report given, questions answered & plan of care reviewed with LEWIS. Addendum: 08/13/21 at 1957 by Edison Mercado RN Amended: Links added.
[2021-08-13] MEDS ORDERED: vancomycin/NS 1 GM ADD-VANTAGE 250 ML IV SCH (20:00)
[2021-08-13] MEDS ORDERED: sennosides 8.6mg tablet PO SCH (21:00)
[2021-08-14] VITALS: BP 102/62
[2021-08-14] MEDS: ceFAZolin/D5W- 1GM premix 50 ML IV SCH (00:59)
[2021-08-14] MEDS: HYDROmorphone 1 mg/ml syringe IV PRN (01:55)
[2021-08-14] MEDS: ondansetron/PF 4mg/2ml inj IV PRN (01:59)
[2021-08-14 04:00] VITALS: BP 110/56
[2021-08-14] MEDS: HYDROcodone/acetaminophen 10/325mg tab PO PRN (04:09)
[2021-08-14 06:05] LABS: BASOPHILS % (AUTO) 0.3 % (0-1); EOSINOPHILS # (AUTO) 0.1 X10'3 (0-0.9); EOSINOPHILS % (AUTO) 1.6 % (0-6); HEMATOCRIT 23.2 % (35.0-45.0); HEMOGLOBIN 8.2 g/dl (12.0-16.0); LYMPHOCYTES # (AUTO) 1.2 X10'3 (1.1-4.8); LYMPHOCYTES % (AUTO) 16.6 % (21-51); MEAN CORPUSCULAR HEMOGLOBIN 32.9 PG (27.0-31.0); MEAN CORPUSCULAR HGB CONC 35.5 g/dL (33.0-36.5); MEAN CORPUSCULAR VOLUME 92.7 FL (78-98); MEAN PLATELET VOLUME 7.4 FL (7.4-10.4); MONOCYTES # (AUTO) 0.8 X10'3 (0-0.9); MONOCYTES % (AUTO) 11.7 % (2-12); NEUTROPHILS # (AUTO) 4.9 X10'3 (1.8-7.7); NEUTROPHILS % (AUTO) 69.8 % (42-75); PLATELET COUNT 167 X10'3 (140-440); RED CELL DISTRIBUTION WIDTH 12.6 % (11.5-14.5)
--- NOTE | 2021-08-14 06:28 | NUR ---
Patient in room ROLF 356. I have received report from Jacquie calles and had the opportunity to ask questions and assume patient care.
[2021-08-14 06:35] LABS: ALANINE AMINOTRANSFERASE 91 U/L (12-78); ALBUMIN 2.9 G/DL (3.4-5.0); ALBUMIN/GLOBULIN RATIO 1.2 (1.1-1.5); ALKALINE PHOSPHATASE 56 IU/L (46-116); ANION GAP 6 (8-16); ASPARTATE AMINO TRANSFERASE 93 U/L (10-37); BILIRUBIN,TOTAL 0.3 MG/DL (0.1-1.0); BLOOD UREA NITROGEN 8 MG/DL (7-18); CALCIUM 7.9 MG/DL (8.5-10.1); CHLORIDE 98 MMOL/L (99-107); GLUCOSE 133 MG/DL (70-104); POTASSIUM 3.4 MMOL/L (3.5-5.1); SODIUM 131 MMOL/L (135-145); TOTAL PROTEIN 5.3 G/DL (6.4-8.2); eGFR 72 ML/MIN
[2021-08-14] MEDS: gabapentin 300mg capsule PO SCH (07:55)
[2021-08-14] MEDS ORDERED: propranolol 40mg tablet PO SCH (08:00)
[2021-08-14] MEDS ORDERED: venlafaxine XR 75mg capsule (Q24H) PO SCH (08:00)
[2021-08-14] MEDS ORDERED: HYDROchlorothiazide 25mg tablet PO SCH (08:00)
[2021-08-14 08:19] VITALS: BP 92/54
[2021-08-14] MEDS ORDERED: aspirin 325mg tablet PO SCH (08:30)
[2021-08-14] MEDS ORDERED: HYDR-3972 PO (11:15)
[2021-08-14 11:42] VITALS: BP 99/53
--- NOTE | 2021-08-14 11:50 | NUR ---
Per MEHUL Tavarez pt does not need to be replaced for a k of 3.4. pt is going home.
[2021-08-14] MEDS ORDERED: ASPI-845 PO (12:26)
--- NOTE | 2021-08-14 12:55 | NUR ---
pt is stable for discharge, iv is dc and canula is intact, pt has all belongings, dc info was gone over and signed. dressing was changed. Pt will be wheeled out to the lobby and picked up by a private vehicle.
== END 2021-08-14 13:10 | disposition home or self-care (01) ==
LOC: PAS 05:38 → SUR 3N 10:36 → PAS 08-14 13:10
PROVIDERS: ATTEND Orthopaedic Surgery
DX: M17.12 Unilateral primary osteoarthritis, left knee (principal); G89.18 Other acute postprocedural pain; G43.909 Migraine, unspecified, not intractable, without status migrainosus; D64.9 Anemia, unspecified; F32.9 Major depressive disorder, single episode, unspecified; I10 Essential (primary) hypertension; Z85.820 Personal history of malignant melanoma of skin; Z20.822 Contact with and (suspected) exposure to COVID-19; Z79.01 Long term (current) use of anticoagulants; Z79.899 Other long term (current) drug therapy; Z86.14 Personal history of Methicillin resistant Staphylococcus aureus infection; Z98.890 Other specified postprocedural states; Z98.84 Bariatric surgery status; Z96.651 Presence of right artificial knee joint; Z87.891 Personal history of nicotine dependence
CPT/HCPCS: 27447; 36415; 64447; 76942; 80053; 82948; 85025; 85610; 85730; 86885; 86900; 86901; 86920; 87081; 97110; 97116; 97161; 97530; A6223; C1713; C1758; C1776; J0131; J0690; J0735; J1170; J1200; J1885; J2250; J2370; J2405; J2704; J2795; J3010; J3370; J3480; J3490; J7030; J7040; J7120; Q0163; U0003; U0005; Z7506; Z7508; Z7512; A6253; A6449; A6455; A7000; G0378